=== PATIENT | female | born 1985 | race Caucasian/White ===

== ENCOUNTER → 2016-11-05 | Outpatient (CLI) | payer OTHER | LOC: OD 12:15 | PROVIDERS: ATTEND Specialist | DX: I30.9 Acute pericarditis, unspecified (principal) | CPT/HCPCS: 36415; 85652; 86140 ==

== ENCOUNTER 2016-11-26 09:34 | Day surgery (SDC) | payer OTHER ==
--- NOTE | 2016-11-15 10:08 | HISTORY AND PHYSICAL E ---
History and Physical NAME: LUIS MYERS : 1985 AGE: 30Y ADMITTED: 11/26/2016 ROOM: REFERRING: [facility]. HISTORY: [age], with hiatus hernia, atypical chest pain, epigastric, nausea, vomiting. SOCIAL HISTORY: . Does not smoke. Drinks rarely. SURGICAL HISTORY: 1. Tonsillectomy. 2. Left oophorectomy. 3. Ablation, uterus. 4. Tubal ligation. 5. Partial hysterectomy;. MEDICATIONS: 1. Topamax. 2. Naproxen. 3. Celexa. REVIEW OF SYSTEMS: CARDIAC: Negative. RESPIRATORY: Negative. GASTROINTESTINAL: Hiatus hernia, heartburn, reflux, nausea, vomiting, atypical chest pain. NEUROPSYCHOLOGY: Anxiety, depression. FAMILY HISTORY: Father is alive. Mom is alive PHYSICAL EXAMINATION: GENERAL: Pleasant, alert, oriented. VITAL SIGNS: Blood pressure 100/60, pulse 80, respirations 20, temperature is 98. HEAD, EYES, EARS, NOSE, THROAT: Normal. NECK: Is supple. CARDIOVASCULAR: Normal. LUNGS: Were clear. ABDOMEN: Soft. NEUROLOGIC: Exam negative. PLAN: Upper scope. Admit 11/26/2016; today is 11/11/2016. DICTATING PHYSICIAN: ALY CRUZ M.D. [id number] [id number] Y#: [id number] ID: [id number] JOB#: [id number] ACCT: [id number] cc:[facility] ALY CRUZ M.D. >
--- NOTE | 2016-11-25 10:40 | HISTORY AND PHYSICAL E ---
History and Physical NAME: LUIS MYERS : 1985 AGE: 30Y ADMITTED: ROOM: CHIEF COMPLAINT: Reflux. HISTORY OF PRESENT ILLNESS: The patient is 30, presented with chest pain, reflux, epigastric abdominal pain. PAST SURGICAL HISTORY: 1. Tonsillectomy. 2. Left oophorectomy. 3. Ablation uterus. 4. Tubal ligation. 5. Partial hysterectomy. MEDICATIONS: 1. Topamax. 2. Celexa. SOCIAL HISTORY: , does not smoke, drinks rarely. FAMILY HISTORY: Father is alive, heart disease. Mom is alive, heart disease. REVIEW OF SYSTEMS: HEENT: Negative. CARDIAC: Negative. RESPIRATORY: Negative. ENDOCRINE: Negative. GASTROINTESTINAL: Hiatus hernia, heartburn, chest pain, reflux, nausea, and vomiting. NEUROPSYCHIATRIC: Anxiety and depression. PHYSICAL EXAMINATION: GENERAL: A 30-year-old female in no acute distress. VITAL SIGNS: Weight 190. Her weight was as low as 130. She gained weight to 190. Blood pressure . Pulse 70. Respirations 18. Temperature is 98. HEAD, EYES, EARS, NOSE, THROAT: Normal. ABDOMEN: Soft. NEUROLOGIC: Negative. PLAN: Upper endoscopy. Consider gallbladder ultrasound. Scheduled for upper endoscopy to be done on the of next month, November. DICTATING PHYSICIAN: ALY CRUZ M.D. [id number] [id number] PHY#: [id number] ID: [id number] JOB#: [id number] ACCT: [id number] cc:[facility], ALY CRUZ M.D. >
[~2016-11-26 09:34] MED LIST: EPINEPHRINE INJ 1 MG/10 ML DISP.SYRIN ONE; FLUMAZENIL INJ 0.5 MG/5 ML VIAL IV ONE; GLYCOPYRROLATE INJ 0.4 MG/2 ML VIAL ONE; NALOXONE HCL INJ/PF 0.4 MG/1 ML SDV ONE; ONDANSETRON HCL INJ/PF 4 MG/2 ML SDV ONE
[2016-11-26] MEDS: FENTANYL CITRATE INJ/PF 100 MCG/2 ML AMPUL ONE ×2 (10:24→10:35)
[2016-11-26] MEDS: MIDAZOLAM 2 MG/2 ML INJ ONE ×4 (10:26→10:37)
--- NOTE | 2016-11-26 11:14 | OPERATIVE REPORT E ---
Operative Report NAME: LUIS MYERS : 1985 AGE: 30Y DATE OF SURGERY: 11/26/2016 ROOM: PREOPERATIVE DIAGNOSIS: Left upper quadrant abdominal pain, nausea, vomiting, migraine. POSTOPERATIVE DIAGNOSES: 1. Sliding hiatus hernia. 2. Prominent gastric folds. 3. Mild gastritis. 4. Mild esophagitis. 5. Mild duodenitis. PROCEDURE: Esophagoscopy, gastroscopy, duodenoscopy. SURGEON: ALY CRUZ M.D. ANESTHESIA: Versed 6 mg and Fentanyl 150 mcg. ALLERGIES: THE PATIENT IS ALLERGIC TO PHENERGAN. TISSUE REMOVED OR ALTERED: Gastric biopsy for H. pylori. PROCEDURE: After adequate sedation, the baby scope was passed under guided vision, no difficulties. Esophagoscopy: Junction at 35 cm, sliding hiatus hernia, mild esophagitis. Gastroscopy: Mild gastritis, prominent gastric folds in the fundus. Duodenoscopy: No ulcers, mild duodenitis. CONCLUSIONS: 1. No ulcers, no bleeding. 2. Hiatus hernia. PLAN: 1. Awaiting biopsy results and lab studies. 2. The patient is to see us in the office in the next few days. DICTATING PHYSICIAN: ALY CRUZ M.D. 1209M [id number] PHY#: [id number] ID: [id number] JOB#: [id number] ACCT: [id number] cc:[facility] Mady TOLBERT. ALY CRUZ M.D. >
[2016-11-26 11:39] LABS: ABSOLUTE BASOPHILS # (AUTO) 0.1 10^3/uL (0.0-0.2); ABSOLUTE EOSINOPHILS # (AUTO) 0.4 10^3/uL (0.0-0.6); ABSOLUTE LYMPHOCYTES (AUTO) 1.3 10^3/uL (0.5-4.7); ABSOLUTE MONOCYTES (AUTO) 0.4 10^3/uL (0.1-1.4); ABSOLUTE NEUT (AUTO) 2.8 10^3/uL (1.7-8.2); EOSINOPHILS % (AUTO) 7.4 % (0-6); HEMATOCRIT 37.7 % (36.0-47.0); HEMOGLOBIN 12.8 g/dL (12.0-15.5); HGB HCT DIFFERENCE 0.7; LYMPHOCYTES % (AUTO) 26.6 % (13-45); MEAN CORPUSCULAR HEMOGLOBIN 29.5 pg (27.0-33.4); MEAN CORPUSCULAR VOLUME 87 fl (80-97); MONOCYTES % (AUTO) 7.3 % (3-13); RED BLOOD COUNT 4.33 10^6/uL (3.72-5.28); RED CELL DISTRIBUTION WIDTH 13.5 % (11.5-14.0); SEGMENTED NEUTROPHILS % (AUTO) 57.7 % (42-78); WHITE BLOOD COUNT 4.9 10^3/uL (4.0-10.5)
[2016-11-26 11:46] VITALS: BP 104/69
[2016-11-26 11:53] LABS: ALANINE AMINOTRANSFERASE 23 U/L (9-52); ALBUMIN 3.7 g/dL (3.5-5.0); ALKALINE PHOSPHATASE 64 U/L (38-126); ANION GAP 10 (5-19); ASPARTATE AMINO TRANSFERASE 17 U/L (14-36); BILIRUBIN,DIRECT 0.2 mg/dL (0.0-0.4); BILIRUBIN,TOTAL 0.7 mg/dL (0.2-1.3); BLOOD UREA NITROGEN 13 mg/dL (7-20); CALCIUM 8.3 mg/dL (8.4-10.2); CARBON DIOXIDE 19 mmol/L (22-30); CHLORIDE 109 mmol/L (98-107); GLUCOSE 129 mg/dL (75-110); LIPASE 49.1 U/L (23-300); POTASSIUM 3.6 mmol/L (3.6-5.0); SODIUM 137.8 mmol/L (137-145); TOTAL PROTEIN 6.4 g/dL (6.3-8.2)
[2016-11-26 11:54] LABS: AMYLASE < 30 U/L (30-110)
[2016-11-26 12:59] LABS: ERYTHROCYTE SEDIMENTATION RATE 5 mm/hr (0-20)
--- NOTE | 2016-11-29 01:14 | DISCHARGE SUMMARY E ---
Discharge Summary NAME: LUIS MYERS : 1985 AGE: 30Y ADMITTED: 11/26/2016 DISCHARGED: 11/26/2016 PROCEDURE: EGD with biopsy. HISTORY: Patient is a 30-year-old white female who presented with nausea, vomiting, abdomina, pain, migraine, hiatus hernia. Upper endoscopy shows no active ulcers. Mild esophagitis, mild gastritis, mild duodenitis, small hiatus hernia. DISCHARGE PLAN: Awaiting biopsy. Lab studies. Consideration for ultrasound of the left upper quadrant to rule out splenomegaly. Meanwhile, lab studies. Patient to continue PPI, soft, low-residue, low-fat diet. The nausea and vomiting may be related to her migraine. Consideration gallbladder ultrasound and left upper quadrant ultrasound as well. Patient to stay on a soft, low-residue diet. Patient to see us in the office in the next few days. DICTATING PHYSICIAN: ALY CRUZ M.D. [id number] [id number] PHY#: [id number] ID: [id number] JOB#: [id number] ACCT: [id number] cc:[facility] ALY CRUZ M.D. >
== END 2016-11-26 12:00 | disposition home or self-care (01) ==
LOC: END 09:34
PROVIDERS: ATTEND Specialist
PROC: 0DB68ZX Excision of Stomach, Via Natural or Artificial Opening Endoscopic, Diagnostic (ICD-10-PCS; principal; 2016-11-26 10:00)
DX: K21.9 Gastro-esophageal reflux disease without esophagitis (principal); K29.80 Duodenitis without bleeding; K44.9 Diaphragmatic hernia without obstruction or gangrene; F32.9 Major depressive disorder, single episode, unspecified; F41.9 Anxiety disorder, unspecified; Z79.899 Other long term (current) drug therapy; Z79.1 Long term (current) use of non-steroidal anti-inflammatories (NSAID)
CPT/HCPCS: 43239; 36415; 82150; 83690; 85025; 85652; 80053; 88342 ×2; 88305 ×2; J2250; J3010; J2405; J0171; J2310; J3490